=== PATIENT | male | born 1990 | race Caucasian/White ===

== ENCOUNTER 2016-11-04 20:17 | Emergency (ER) | payer OTHER ==
[2016-11-04] MEDS ORDERED: CYCLOBENZAPRINE 10 MG TAB ONE (21:05)
== END 2016-11-04 21:55 | disposition home or self-care (01) ==
LOC: FASTR 20:17
DX: S23.3XXA Sprain of ligaments of thoracic spine, initial encounter (principal); S33.5XXA Sprain of ligaments of lumbar spine, initial encounter; V43.52XA Car driver injured in collision with other type car in traffic accident, initial encounter; F17.210 Nicotine dependence, cigarettes, uncomplicated
CPT/HCPCS: 70450; 72072; 72100; 72125